=== PATIENT | female | born 1995 | race Caucasian/White ===

== ENCOUNTER 2016-12-15 07:24 | Emergency (ER) | payer SELFPAY ==
[2016-12-15] MEDS ORDERED: Metoclopramide HCl 10 MG/2 ML VIAL ONE (07:59)
[2016-12-15] MEDS ORDERED: diphenhydrAMINE HCl 50 MG/ML 1 ML VIAL ONE (07:59)
[2016-12-15] MEDS ORDERED: Sodium Chloride 0.9% 1,000 ML ONE (07:59)
== END 2016-12-15 09:23 | disposition home or self-care (01) ==
LOC: NAV ERS 07:24
DX: G43.909 Migraine, unspecified, not intractable, without status migrainosus (principal); F17.210 Nicotine dependence, cigarettes, uncomplicated
CPT/HCPCS: 96361; 96374; 96375; J1200; J2765; J7050

== ENCOUNTER 2017-01-10 19:14 | Emergency (ER) | payer SELFPAY ==
[2017-01-10] MEDS ORDERED: Ketorolac Tromethamine 30 MG/ML VIAL ONE (19:55)
[2017-01-10] MEDS ORDERED: Metoclopramide HCl 10 MG/2 ML VIAL ONE (19:55)
[2017-01-10] MEDS ORDERED: diphenhydrAMINE HCl 50 MG/ML 1 ML VIAL ONE (19:55)
[2017-01-10] MEDS ORDERED: Sodium Chloride 0.9% 1,000 ML ONE (19:55)
== END 2017-01-10 21:00 | disposition home or self-care (01) ==
LOC: NAV ERS 19:14
DX: G43.909 Migraine, unspecified, not intractable, without status migrainosus (principal); F17.210 Nicotine dependence, cigarettes, uncomplicated
CPT/HCPCS: 96374; 96375; J1200; J1885; J2765; J7050